=== PATIENT | female | born 1955 | race Caucasian/White ===

== ENCOUNTER 2019-11-20 08:12 | Day surgery (SDC) | payer OTHER ==
[~2019-11-20] VITALS: Ht 177.8 cm; Wt 86.2 kg
[~2019-11-20 08:12] MED LIST: ADULT ASPIRIN R81 MG PO; COZAAR25 MG PO; GLUCOPHAGE500 MG PO; LIPITOR40 MG PO; VITAMIN D3400 UNIT PO
--- NOTE | 2019-11-20 09:58 | NUR ---
11/20/19 0958 Jazmine Trent 0953 PATIENT ARRIVES TO PACU AWAKE BUT DROWSY, ANSWERS QUESTIONS APPROPRIATELY, DENIES PAIN OR NAUSEA, BACK TO SLEEP WHEN NOT STIMULATED. RESP EVEN AND UNLABORED, ARRIVES ON ROOM AIR WITH SATS >92%.
--- NOTE | 2019-11-20 18:36 | OR ---
[facility] [address] [place], [place] [address] Signed DATE OF OPERATION: 11/20/2019 SURGEON: Louisa Crowley MD PREOPERATIVE DIAGNOSIS: History of sigmoid resection for diverticulosis, 2007, colon surveillance. POSTOPERATIVE DIAGNOSES: 1. Diverticulosis of remaining colon. 2. Patent anastomosis. 3. Small polyp on rectal side of coloproctostomy anastomotic site. PROCEDURE: Total colonoscopy to cecum with cold snare polypectomy x1. ANESTHESIA: Intravenous sedation, fentanyl 100 mcg, Versed 7 mg. INDICATION: This 64-year-old white woman is a patient of Dr. Landrum as well as Dr. York. She underwent sigmoid resection by me for diverticular disease in 2007. She is here for surveillance colonoscopy. Her last colonoscopy was in 2009, 10 years ago. She is symptom-free. She has no bleeding, diarrhea, or constipation and no family history of colon cancer. She understands the risks of bleeding, infection, and perforation related to colonoscopy and wished to proceed. FINDINGS: The prep was excellent. Complete colonoscopy was undertaken to the cecum without question. Numerous diverticula were seen in the colon above the anastomosis. She had no evidence of anastomotic stricture. There was a small polyp, probably adenomatous downstream (rectal side) of the anastomosis, which was excised completely with cold snare polypectomy technique. There were no other findings of concern. DESCRIPTION OF PROCEDURE: The patient was brought to the endoscopy suite and placed in lateral decubitus position, given intravenous sedation to the point of slurred speech and nystagmus. Digital rectal examination was normal. An Olympus video colonoscope was passed in the rectum and manipulated throughout the colon noting numerous diverticula throughout. The scope was ultimately advanced to the Electronically Signed By: LOUISA CROWLEY MD 11/20/19 1836 PATIENT NAME: JENNIFER FRANCO OPERATIVE REPORT DATE OF : 59 REPORT #: [id number] PHYSICIAN: LOUISA CROWLEY MD PCP: PABLO LANDRUM MD REPORT IS CONFIDENTIAL AND NOT TO BE RELEASED WITHOUT AUTHORIZATION [facility] [address] [place], [place] [address] Signed cecum. The ileocecal valve appeared normal. Irrigation was undertaken and careful withdrawal of scope from that point showed no sign of abnormality. At the coloproctostomy anastomosis, it was widely patent without sign of problem. There was a small polyp on the rectal side of the anastomosis. This was excised with cold snare polypectomy technique without problem. Retroflexed view of the rectum was normal as well. The scope was removed. The patient was taken to recovery room in good condition. CONCLUDING DIAGNOSES: 1. Diverticulosis, asymptomatic. 2. Small polyp of rectum (excised). PLAN: The path report confirms an adenomatous polyp. I would recommend repeat colonoscopy in 5 years, if not then 10 years. Maintain high-fiber diet. She will return to the ongoing care of Dr. York and Dr. Landrum. MD JOEL Yañez/DONATO /[id number] cc: MD Michelle Briggsn, MD Copies: PABLO LANDRUM MD, PATRICIA J MD ~ Electronically Signed By: LOUISA CROWLEY MD 11/20/19 1836 PATIENT NAME: JENNIFER FRANCO OPERATIVE REPORT DATE OF : 59 REPORT #: [id number] PHYSICIAN: LOUISA CROWLEY MD PCP: PABLO LANDRUM MD REPORT IS CONFIDENTIAL AND NOT TO BE RELEASED WITHOUT AUTHORIZATION
--- NOTE | 2019-11-24 15:17 | PATH ---
[facility] [address] [place], [place] [address] Signed SPECIMEN(S): A RECTAL POLYP SPECIMEN SOURCE: A. RECTAL POLYP CLINICAL HISTORY: Surveillance colonoscopy/polyp x2; diverticulosis MICROSCOPIC DESCRIPTION: Histologic sections of all submitted blocks are examined by light microscopy. These findings, together with the gross examination, support the pathologic diagnosis. FINAL PATHOLOGIC DIAGNOSIS: Rectum, polyp, polypectomy: - Fragments of colorectal mucosa with no histopathologic abnormality. - Negative for dysplasia or malignancy. NAL:caw:C GROSS DESCRIPTION: The specimen, labeled "KN, rectal polyp," is received in formalin and consists of two cox soft tissue fragment(s) that measure 0.5 and 0.7 cm in greatest dimension. The specimen is entirely submitted in cassette (A1). FB (under the direct supervision of a pathologist) The Gross Description was prepared using a voice recognition system. The report was reviewed for accuracy; however, sound-alike word errors, addition and/or deletions may occur. If there is any question about this report, please contact Client Services. PERFORMING LABORATORY: The technical component was performed by [employer], [address] [place] [address] (Electronic Prepress Technician: Betty Adler MD; CLIA# [id number]). [facility], [address] [address] (Electronic Prepress Technician: Adalberto Castro MD; CLIA# [id number]). Diagnostician: Eleonora Lantigua MD Pathologist Electronically Signed 11/24/2019 PATIENT NAME: JENNIFER FRANCO PATHOLOGY DATE OF : 59 REPORT #: [id number] PHYSICIAN: DEISY PATHOLOGY PCP: PABLO COOLEY MD REPORT IS CONFIDENTIAL AND NOT TO BE RELEASED WITHOUT AUTHORIZATION [address] [place] [address] Signed Copies: ~ PATIENT NAME: JENNIFER FRANCO PATHOLOGY DATE OF : 59 REPORT #: [id number] PHYSICIAN: [facility] PCP: PABLO COOLEY MD REPORT IS CONFIDENTIAL AND NOT TO BE RELEASED WITHOUT AUTHORIZATION
== END 2019-11-20 10:15 | disposition home or self-care (01) ==
LOC: OPS 08:12 → DS 08:16 → OPS 09:45 → DS 09:45 → OPS 10:15
PROVIDERS: Surgery
PROC: 0DBP8ZZ Excision of Rectum, Via Natural or Artificial Opening Endoscopic (ICD-10-PCS; principal; 2019-11-20 09:45)
DX: Z12.11 Encounter for screening for malignant neoplasm of colon (principal); K62.1 Rectal polyp; K57.30 Diverticulosis of large intestine without perforation or abscess without bleeding; I10 Essential (primary) hypertension; E11.9 Type 2 diabetes mellitus without complications; Z90.49 Acquired absence of other specified parts of digestive tract; Z98.0 Intestinal bypass and anastomosis status; Z79.899 Other long term (current) drug therapy; Z79.84 Long term (current) use of oral hypoglycemic drugs
CPT/HCPCS: 99153; G0500; J2250; J3010; J7121

== ENCOUNTER 2020-05-04 10:14 | Emergency (ER) | payer OTHER ==
[~2020-05-04] VITALS: Ht 177.8 cm; Wt 86.2 kg
--- OUTSIDE RECORDS SUMMARY | ~2020-05-04 | XMS | Clinical Summary ---
Demographics + + + | Address | [address] | | | [place] [address] | + + + | Home Phone | | + + + | Preferred Language | Unknown | + + + | Marital Status | | + + + | Restorationist Affiliation | 1041 | + + + | Race | Unknown | + + + | Ethnic Group | Unknown | + + + Author + + + | Author | [facility] | | | and Marco Antonioana | + + + | Organization | [facility] | | | and Marco Antonioana | + + + | Address | Unknown | + + + | Phone | Unavailable | + + + Support + + +---------+ + | Name | Relationship | Address | Phone | + + +---------+ + | Leobardo Swartz | ECON | Unknown | | + + +---------+ + Care Team Providers + +------+ + | Care Laborer Prestressed Concrete Name | Role | Phone | + +------+ + PCP | Unavailable | + +------+ + Allergies Not on File Medications Not on file Active Problems Not on file Social History + +-------+ +--------+------+ | Tobacco Use | Types | Packs/Day | Years | Date | | | | | Used | | + +-------+ +--------+------+ | Never Assessed | | | | | + +-------+ +--------+------+ + + + | Sex Assigned at | Date Recorded | | | | + + + | Not on file | | + + + Last Filed Vital Signs Not on file Plan of Treatment + + +-------+ + | Health Maintenance | Due Date | Last | Comments | | | | Done | | + + +-------+ + | Vaccine: | | | | | Dtap/Tdap/Td (1 - | 6 | | | | Tdap) | | | | + + +-------+ + | Cervical Cancer | | | | | Screening (Pap) | 7 | | | + + +-------+ + | Vaccine: Zoster (1 | | | | | of 2) | 7 | | | + + +-------+ + | Breast Cancer | | | | | Screening | 2 | | | + + +-------+ + | Vaccine: Influenza | | | | | (#1) | 0 | | | + + +-------+ + Results Not on filefrom Last 3 Months"
--- OUTSIDE RECORDS SUMMARY | ~2020-05-04 | XMS | Encounter Summary ---
Demographics + + + | Address | [address] | | | [place] [address] | + + + | Home Phone | | + + + | Preferred Language | Unknown | + + + | Marital Status | | + + + | Evangelical Affiliation | 1041 | + + + | Race | Unknown | + + + | Ethnic Group | Unknown | + + + Author + + + | Author | [facility] | | | and Marco Antonioana | + + + | Organization | [facility] | | | and Marco Antonioana [...] Team Providers + +------+ + | Care Field Director Name | Role | Phone | + +------+ + PCP | Unavailable | + +------+ + Encounter Details +--------+ + + + + | Date | Type | Department | Care Team | Description | +--------+ + + + + | 05/09/ | Hospital | [facility] | [place], | | | 2005 - | Encounter | [facility] | Magan Iqbal MD [address] | | | | [place] [address] | [facility] | | | 08/07/ | | [place] | [place] [address] | | | 2005 | | [address] | [phone] | | | | | [phone] | | | +--------+ + + + + Social History + +-------+ +--------+------+ | Tobacco [...] on file | | + + + documented as of this encounter Plan of Treatment Not on filedocumented as of this encounter Visit Diagnoses Not on filedocumented in this encounter"
[2020-05-04] MEDS ORDERED: NORCO 5-325 TA1 EACH PO (10:45)
== END 2020-05-04 11:12 | disposition home or self-care (01) ==
LOC: ED 10:14
DX: S49.002A Unspecified physeal fracture of upper end of humerus, left arm, initial encounter for closed fracture (principal); I10 Essential (primary) hypertension; E11.9 Type 2 diabetes mellitus without complications; Z79.899 Other long term (current) drug therapy; Z79.84 Long term (current) use of oral hypoglycemic drugs; W11.XXXA Fall on and from ladder, initial encounter
CPT/HCPCS: 73060; 99283-25

== ENCOUNTER 2020-05-11 05:50 | Day surgery (SDC) | payer OTHER ==
[~2020-05-11] VITALS: Ht 177.8 cm; Wt 86.2 kg
[~2020-05-11 05:50] MED LIST changes: +NORCO 5-325 TA1 EACH PO
[2020-05-11] MEDS ORDERED: OXYCODONE HCL5 MG PO (08:04)
--- NOTE | 2020-05-12 10:45 | OR ---
[facility] [address] [place], [place] [address] Signed DATE OF OPERATION: 05/11/2020 SURGEON: Gracy Castro MD PREOPERATIVE DIAGNOSIS: Displaced left proximal humerus fracture. POSTOPERATIVE DIAGNOSIS: Displaced left proximal humerus fracture. PROCEDURE PERFORMED: Open reduction and internal fixation of left proximal humerus. MANAGER CASE MANAGEMENT: Mellisa White PA-C. Mellisa was present and critical for all portions of procedure and Ritesh LANZA. ANESTHESIA: General. BLOOD LOSS: 100 mL. IMPLANTS: Synthes short proximal humerus plate with 7 screws. BRIEF HISTORY: Jennifer is a 64-year-old female, who suffered a ground level fall fracturing her proximal humerus. It was 100% displaced anteriorly. Risks and benefits of operative treatment were discussed with her. It was noted that she was thrombocytopenic, which is her normal state. Her platelets were around 96. We did have two 6 packs of platelets available prior to surgery; however, we held off giving them until after ascertaining whether they were needed. She was taken to the operating room. After adequate anesthesia, she was placed in a beach chair position. All downside pressure points were well padded. The shoulder was prepped and draped in a standard sterile fashion. Standard deltopectoral approach was taken through skin and subcutaneous tissue. The deltopectoral interval was identified. The cephalic vein was identified, retracted laterally and protected. The subdeltoid bursa was mobilized. The fracture was readily identifiable. The fracture was distracted and cleaned of all debris and using rotation Electronically Signed By: GRACY CASTRO MD 05/12/20 0728 Electronically Signed By: GRACY CASTRO MD 05/13/20 1138 PATIENT NAME: JENNIFER FRANCO OPERATIVE REPORT DATE OF : 59 REPORT #: [id number] PHYSICIAN: GRACY CASTRO MD PCP: PABLO COOLEY MD REPORT IS CONFIDENTIAL AND NOT TO BE RELEASED WITHOUT AUTHORIZATION [facility] [address] [place], [place] [address] Signed and a shoe horn, the fracture was reduced quite nicely. This was checked using image intensifier and found to be in good position. We then placed the short proximal humerus plate on the lateral aspect of the humerus just posterior to the biceps tendon. The plate was held with a single screw in the center portion. We did place in a low position since there were no tuberosity fractures. This will help to avoid impingement. Once the position was ascertained on the C-arm, the 5 proximal screws were placed under image intensifier guidance. We then placed two more screws distally and checked the position and screw lengths, all were found to be adequate. The reduction was anatomic. The wound was then copiously irrigated with antibiotic solution, closed with 0 Vicryl for the deltopectoral interval, 2-0 Stratafix for the subcutaneous tissue, and zari for the skin. Wound was dressed with a KHLOE wound VAC dressing and she was placed in a sling, taken to the recovery room in satisfactory condition. All sponge, needle, and instrument counts were correct. Gracy Castro MD BA/MODL /[id number] Copies: ~ Electronically Signed By: GRACY CASTRO MD 05/12/20 0728 Electronically Signed By: GRACY CASTRO MD 05/13/20 1138 PATIENT NAME: JENNIFER FRANCO OPERATIVE REPORT DATE OF : 59 REPORT #: [id number] PHYSICIAN: GRACY CASTRO MD PCP: PABLO COOLEY MD REPORT IS CONFIDENTIAL AND NOT TO BE RELEASED WITHOUT AUTHORIZATION
== END 2020-05-11 11:00 | disposition home or self-care (01) ==
LOC: DS 05:50 → OPS 05:50
PROVIDERS: ATTEND Specialist
PROC: 0PSD04Z Reposition Left Humeral Head with Internal Fixation Device, Open Approach (ICD-10-PCS; principal; 2020-05-11 06:45)
DX: S42.202A Unspecified fracture of upper end of left humerus, initial encounter for closed fracture (principal); I10 Essential (primary) hypertension; E11.9 Type 2 diabetes mellitus without complications; Z79.899 Other long term (current) drug therapy; Z79.84 Long term (current) use of oral hypoglycemic drugs; W11.XXXA Fall on and from ladder, initial encounter
CPT/HCPCS: 01740; 64415; 73060; 76942; C1713; J0131; J0330; J0690; J0735; J1100; J1885; J2001; J2250; J2270; J2405; J2704; J2765; J3010; J7121

== ENCOUNTER 2025-07-16 08:16 | Day surgery (SDC) | payer MEDICARE, OTHER ==
[~2025-07-16] VITALS: Ht 177.8 cm; Wt 60.9 kg
--- NOTE | ~2025-07-16 | OR ---
[facility] [address] [place], [place] [address] Draft DATE OF OPERATION: 07/16/2025 SURGEON: Louisa Crowley MD PREOPERATIVE DIAGNOSIS: Progressive weight loss, 70 pounds over four years, now with severe epigastric pain. POSTOPERATIVE DIAGNOSES: 1. Moderately severe antral gastritis and duodenitis without sign of ulceration. 2. Probable bile reflux related gastritis. PROCEDURE: Esophagogastroduodenoscopy with biopsy. ANESTHESIA: Intravenous sedation, fentanyl 100 mcg, and Versed 5 mg. INDICATION: This 70-year-old white woman is a patient of Jasmine Wall PA-C. She was seen by me recently with complaints of persistent progressive epigastric pain, which is relieved only by eating. Perpetual intake of food is the only relief she has. Notably, she has gained no weight from all of the food intake and indeed has lost at least 70 pounds over the past four years. Her usual weight as far back as high school was 170 pounds and now she is 134 pounds. The patient does have diabetes for which she is taking Jardiance as well as metformin as well as Basaglar. She was empirically started on a PPI medication by me a few days ago and notes mild improvement. Given her weight loss and so forth, I am somewhat concerned of malignancy and on that basis, an urgent upper endoscopy is recommended. The risk of bleeding, infection, and perforation was reviewed with her. She understands, wished to proceed. FINDINGS: There was no sign of neoplasm or actual ulceration. She had a fair amount of bile within the stomach upon entry into it. She did have antral gastritis and significant pyloric and second portion of duodenum inflammatory changes as well. CLOtest was negative. The flap valve was reasonably good. The esophagus was entirely normal. CLOtest is negative thus far. DESCRIPTION OF PROCEDURE: The patient was brought to the endoscopy suite, given topical lidocaine hypopharyngeal anesthesia and placed in lateral decubitus position. She was given intravenous sedation PATIENT NAME: JENNIFER FRANCO OPERATIVE REPORT DATE OF : 59 REPORT #: [id number] PHYSICIAN: LOUISA CROWLEY MD PCP: JASMINE WALL PAC REPORT IS CONFIDENTIAL AND NOT TO BE RELEASED WITHOUT AUTHORIZATION [facility] [address] [place], [place] [address] Draft to the point of slurred speech and nystagmus. Full cardiopulmonary monitoring was maintained. A bite block was placed. An Olympus video upper endoscope was passed in the hypopharynx. The vocal cords were normal. The scope was advanced to the esophagus. It was normal. Scope was advanced into the stomach, which showed a fair amount of edema and inflammation and considerable amount of bile. Irrigation was undertaken. Bile was suctioned free. Rugal folds were thickened. The antrum showed inflammatory change, but no sign of ulceration or neoplasm. Pylorus was normal. Scope was passed through into the duodenum. Scope was passed as far as possible, no doubt to the 3rd portion of the duodenum, which was normal. Biopsies were taken there and upon withdrawal of scope, inflammatory changes were noted of the second and bulbar portions of the duodenum. These areas were biopsied independently. Scope was withdrawn and biopsies taken of the antrum and more proximal stomach for both HO and pathologic testing. CLOtest biopsies were obtained as well. Retroflexed view showed a normal flap valve. Withdrawal of scope to the distal esophagus showed normal esophageal mucosa, which was biopsied. Careful withdrawal showed no other findings of note. The scope was removed. The patient was taken to recovery room. CONCLUDING DIAGNOSIS: Moderately severe antral gastritis and duodenitis. We will initiate PPI on a b.i.d. basis and prescribe Carafate 1 g p.o. q.i.d. We will additionally check abdominal CT scan. She will call the office in the coming week and we will organize that. I will see her back in the office thereafter. MD JOEL Yañez/DONATO /[id number] cc: Jasmine Wall PA-C Copies: PATIENT NAME: JENNIFER FRANCO OPERATIVE REPORT DATE OF : 59 REPORT #: [id number] PHYSICIAN: LOUISA CROWLEY MD PCP: JASMINE WALL PAC REPORT IS CONFIDENTIAL AND NOT TO BE RELEASED WITHOUT AUTHORIZATION [facility] [address] [facility] [place] [address] Draft ~ PATIENT NAME: JENNIFER FRANCO OPERATIVE REPORT DATE OF : 59 REPORT #: [id number] PHYSICIAN: LOUISA CROWLEY MD PCP: JASMINE WALL PAC REPORT IS CONFIDENTIAL AND NOT TO BE RELEASED WITHOUT AUTHORIZATION
[~2025-07-16 08:16] MED LIST changes: +IBLOOD GLUCOSE TEST STRIP 1 EA TEST VI PRN; +LACTATED RINGER'S 1,000 ML IV SCH; +LIDOCAINE HCL 1% 5 ML SDV INJ ONE; +LIDOCAINE HCL 4% 50 ML BTL TOP SCH; +MIDAZOLAM HCL 5 MG/5 ML VIAL IV PRN; +OXYCODONE HCL5 MG PO; +fentaNYL citrate 100 MCG/2 ML VIAL IV PRN
[2025-07-16] MEDS ORDERED: JARDIANCE25 MG PO (08:39)
[2025-07-16] MEDS ORDERED: BASAGLAR K100 UNIT/1 SUB-Q (08:39)
[2025-07-16 08:41] VITALS: BP 133/73
[2025-07-16] MEDS ORDERED: fentaNYL citrate 100 MCG/2 ML VIAL ONE (09:45)
[2025-07-16] MEDS ORDERED: MIDAZOLAM HCL 5 MG/5 ML VIAL ONE (09:45)
--- NOTE | 2025-07-16 10:37 | NUR ---
07/16/25 Christos Syed 1025: PT ARRIVED TO PACU VIA STRETCHER. PT ALERT AND TALKING ON ARRIVAL. PT ON 3L NC AT THIS TIME. PT DENIES NAUSEA OR PAIN. 1028: PT TITRATED TO RA AT THIS TIME.
[2025-07-16 11:00] VITALS: BP 120/79
--- NOTE | 2025-07-20 10:03 | PATH ---
[facility] [address] [place], [place] [address] Signed SPECIMEN(S): A DUODENAL BIOPSY SPECIMEN(S): B DUODENAL BIOPSY SPECIMEN(S): C ANTRUM BIOPSY SPECIMEN(S): D PROXIMAL STOMACH BIOPSY SPECIMEN(S): E DISTAL ESOPHAGEAL BIOPSY SPECIMEN SOURCE: A. DUODENAL BIOPSY B. DUODENAL BIOPSY C. ANTRUM BIOPSY D. PROXIMAL STOMACH BIOPSY E. DISTAL ESOPHAGEAL BIOPSY CLINICAL HISTORY: Weight loss, chronic epigastric pain/severe gastritis, duodenitis FINAL PATHOLOGIC DIAGNOSIS: A. Duodenal biopsy: - Benign small bowel mucosa consistent with duodenum - Negative for specific features of celiac sprue B. Duodenal bulb biopsy: - Benign small bowel mucosa consistent with duodenum - Negative for specific features of celiac sprue C. Antrum biopsy: - Benign gastric mucosa with features of reactive gastropathy - Negative for active acute inflammation, intestinal metaplasia, dysplasia, or Helicobacter organisms by routine HE stain D. Proximal stomach biopsy: - Benign gastric mucosa with features of reactive gastropathy - Negative for active acute inflammation, intestinal metaplasia, dysplasia, or Helicobacter organisms by routine HE stain E. Distal esophageal biopsy: - Benign squamous mucosa - Negative for glandular mucosa, intestinal metaplasia, dysplasia, or eosinophilia BB MICROSCOPIC EXAMINATION: Histologic sections of all submitted blocks are examined by light microscopy. These findings, together with the gross examination, support the pathologic diagnosis. PATIENT NAME: JENNIFER FRANCO PATHOLOGY DATE OF : 59 REPORT #: [id number] PHYSICIAN: DEISY PATHOLOGY PCP: JASMINE MURRAY PAC REPORT IS CONFIDENTIAL AND NOT TO BE RELEASED WITHOUT AUTHORIZATION [facility] [address] [place], [place] [address] Signed GROSS DESCRIPTION: A. The specimen, labeled and designated "Nooy, duodenal biopsy," is received in formalin and consists of three cox soft tissue fragments, ranging from 0.1-0.4 cm. Entirely submitted in (A1). B. The specimen, labeled and designated "Nooy, duodenal bulb biopsy," is received in formalin and consists of two cox soft tissue fragments, ranging from 0.3-0.4 cm. Entirely submitted in (B1). C. The specimen, labeled and designated "Nooy, antrum biopsy," is received in formalin and consists of one cox soft tissue fragment, 0.4 cm. Entirely submitted in (C1). D. The specimen, labeled and designated "Nooy, proximal stomach biopsy," is received in formalin and consists of two cox soft tissue fragments, ranging from 0.6-0.7 cm. Entirely submitted in (D1). E. The specimen, labeled and designated "Nooy, distal esophageal biopsy," is received in formalin and consists of three cox soft tissue fragments, ranging from 0.1-0.6 cm. Entirely submitted in (E1). VB (under the direct supervision of a pathologist) The Gross Description was prepared using a voice recognition system. The report was reviewed for accuracy; however, sound-alike word errors, addition and/or deletions may occur. If there is any question about this report, please contact Client Services. ADDITIONAL NOTES: Immunohistochemical and/or in situ hybridization studies if performed in this case included appropriate positive controls that reacted as expected. This test was developed and its performance characteristics determined by [facility]. It has not been cleared or approved by the U.S. Food and Drug Administration. The FDA has determined that such clearance or approval is not necessary. This test is used for clinical purposes. It should not be regarded as investigational or for research. [facility] is certified under the Clinical Laboratory Improvement Amendments of 1988 (CLIA) as qualified to perform high complexity clinical laboratory testing. PERFORMING LABORATORY: Technical component was performed by [facility], [address] [place] [address], [place] [address] (CLIA# [id number]). [facility] - [address] [place] [id number] (CLIA#: [id number]). PATIENT NAME: JENNIFER FRANCO PATHOLOGY DATE OF : 59 REPORT #: [id number] PHYSICIAN: DEISY ARMAS PCP: JASMINE MURRAY PAC REPORT IS CONFIDENTIAL AND NOT TO BE RELEASED WITHOUT AUTHORIZATION [facility] [address] [place], [place] [address] Signed Diagnostician: Ramez Quevedo MD Pathologist Electronically Signed 07/20/2025 Copies: ~ PATIENT NAME: JENNIFER FRANCO PATHOLOGY DATE OF : 59 REPORT #: [id number] PHYSICIAN: DEISY ARMAS PCP: JASMINE MURRAY PAC REPORT IS CONFIDENTIAL AND NOT TO BE RELEASED WITHOUT AUTHORIZATION
== END 2025-07-16 11:08 | disposition home or self-care (01) ==
LOC: DS 08:16
PROVIDERS: ATTEND Surgery
PROC: 0DB68ZX Excision of Stomach, Via Natural or Artificial Opening Endoscopic, Diagnostic (ICD-10-PCS; 2025-07-16)
PROC: 0DB58ZX Excision of Esophagus, Via Natural or Artificial Opening Endoscopic, Diagnostic (ICD-10-PCS; 2025-07-16)
PROC: 0DB98ZX Excision of Duodenum, Via Natural or Artificial Opening Endoscopic, Diagnostic (ICD-10-PCS; principal; 2025-07-16 09:30)
DX: K31.89 Other diseases of stomach and duodenum (principal); K29.50 Unspecified chronic gastritis without bleeding; K29.80 Duodenitis without bleeding; E11.9 Type 2 diabetes mellitus without complications; I10 Essential (primary) hypertension; Z88.0 Allergy status to penicillin; Z79.84 Long term (current) use of oral hypoglycemic drugs
CPT/HCPCS: 99153; G0500; J2250; J3010; J7121

== ENCOUNTER 2025-07-30 08:53 | Day surgery (SDC) | payer MEDICARE, OTHER ==
[~2025-07-30] VITALS: Ht 177.8 cm; Wt 59.0 kg
[~2025-07-30 08:53] MED LIST changes: +BASAGLAR K100 UNIT/1 SUB-Q; +CEFAZOLIN SODIUM 2 GM in SODIUM CHLORIDE 0.9% 100 ML IV SCH; +HEParin SOD (PORCINE) 5,000 UNIT/ML SDV SUB-Q SCH; +HYDROMORPHONE HC2 MG PO; +JARDIANCE25 MG PO; -LIDOCAINE HCL 4% 50 ML BTL TOP SCH; -MIDAZOLAM HCL 5 MG/5 ML VIAL IV PRN; +SEVOFLURANE 250 ML BTL INH ONE; -fentaNYL citrate 100 MCG/2 ML VIAL IV PRN
[2025-07-30 09:07] VITALS: BP 148/73
--- NOTE | 2025-07-30 09:28 | NUR ---
FAMILY WITH PT. WARMING AIR ON PER REQUEST.
--- NOTE | 2025-07-30 10:03 | NUR ---
DOUBLE CHECKED WITH DR CROWLEY TO HOLD HEPARIN
[2025-07-30] MEDS ORDERED: SUGAMMADEX SODIUM 200 MG/2 ML ML ONE (10:10)
[2025-07-30] MEDS ORDERED: ROCURONIUM BROMIDE 50 MG/5 ML SYR ONE ×2 (10:10→11:53)
[2025-07-30] MEDS ORDERED: fentaNYL citrate 100 MCG/2 ML VIAL ONE ×2 (10:10→12:06)
[2025-07-30] MEDS ORDERED: ACETAMINOPHEN 1,000 MG/100 ML VIAL ONE (10:10)
[2025-07-30] MEDS ORDERED: LIDOCAINE HCL 2% 5 ML SDV ONE (10:10)
[2025-07-30] MEDS ORDERED: DEXAMETHASONE SOD PHOS 4 MG/ML VIAL ONE (10:10)
[2025-07-30] MEDS ORDERED: LIDOCAINE HCL 2% 20 MG/ML VIAL INJ ONE (10:11)
[2025-07-30] MEDS ORDERED: LACTATED RINGER'S 1,000 ML IV ONE (11:27)
[2025-07-30] MEDS ORDERED: PROCHLORPERAZINE EDISYLATE 10 MG/2 ML VIAL IV PRN (12:45)
[2025-07-30] MEDS ORDERED: NALOXONE HCL 0.4 MG SYR IV PRN ×2 (12:45→13:45)
[2025-07-30] MEDS ORDERED: HYDROmorphone HCL 1 MG/ML SYR IV PRN (12:45)
[2025-07-30] MEDS ORDERED: fentaNYL citrate 50 MCG/ML SDV IV PRN (12:45)
[2025-07-30] MEDS ORDERED: IBLOOD GLUCOSE TEST STRIP 1 EA TEST VI PRN (12:45)
--- NOTE | 2025-07-30 13:30 | NUR ---
07/30/25 1330 Neema Keller PATIENT HAS AN ORAL AIRWAY IN PLACE. MARKO BOO HOLDING JAW THRUST FOR ADEQUATE EXCHANGE.
[2025-07-30] MEDS ORDERED: ACETAMINOPHEN 500 MG TAB PO PRN (13:45)
[2025-07-30] MEDS ORDERED: IBUPROFEN 600 MG TAB PO PRN (13:45)
[2025-07-30] MEDS ORDERED: LACTATED RINGER'S 1,000 ML IV SCH (13:45)
[2025-07-30] MEDS ORDERED: IBUPROFEN600 MG PO (13:53)
[2025-07-30] MEDS ORDERED: ACETAMINOPHEN500 MG PO (13:53)
[2025-07-30] MEDS ORDERED: HYDROMORPHONE HC4 MG PO (13:53)
--- NOTE | 2025-07-30 14:13 | NUR ---
1403- PT REPORT RECIEVED FROM CERAMICS TECHNICIAN. VITALS, PAIN, SURGICAL SITES, N/V NOTED. 1415- PT STATED SHE IS FEELING NAUSEA BUT NO PAIN. RN TO NOTIFY DR FOR MEDICATION.
[2025-07-30 14:45] VITALS: BP 129/80
[2025-07-30 15:08] VITALS: BP 132/71
--- NOTE | 2025-07-30 15:20 | NUR ---
PT RESTING IN BED AND REPORT 5/10 PAIN. PAIN MEDICATION GIVEN, PT EATING APPLESAUCE AND DENIES CONCERNS, NAUSEA IS "BETTER." FAMILY AT BEDSIDE. PLAN OF CARE DISCUSSED AND VSS. PT ENCOURAGED TO CALL WHEN SHE NEEDS TO VOID.
--- NOTE | 2025-07-30 15:23 | NUR ---
RN AT BEDSIDE AND DC INSTRUCTIONS GIVEN AND ALL QUESTIONS ANSWERED. PT AND FAMILY VERBALIZED UNDERSTANDING.
[2025-07-30 16:05] VITALS: BP 130/73
--- NOTE | 2025-07-30 16:10 | NUR ---
1610- PT VITALS, PAIN, /NV, AND SITES NOTED. PT IV SAILINE LOCKED. PT UP TO TRY TO VOID.
--- NOTE | 2025-07-30 16:25 | NUR ---
1615-PT ABLE TO VOID APPROX 500 ML OF YELLOW, URINE. PT ASSISTED BACK TO ROOM WITH RN JENNIFER. FAMILY AT BEDSIDE. PERSONAL BELONGINGS AND CALL LIGHT WITHIN REACH. FAMILY ASSISTING PT IN DRSG. 1625-IV REMOVED. TIP APPEARS INTACT. PRESSURE DRSG APPLIED.
--- NOTE | 2025-07-30 16:35 | NUR ---
PT DISCHARGED FROM DS VIA WC TO PASSENGER SIDE OF SPOUSE VEHICLE.
--- NOTE | 2025-08-02 18:20 | OR ---
[facility] [address], [place] [address] Signed DATE OF OPERATION: 07/30/2025 SURGEON: Louisa Crowley MD PREOPERATIVE DIAGNOSES: 1. Midbody pancreatic neoplasm with incorporation of surrounding major vascular structures. 2. Elevated CA 19-9. POSTOPERATIVE DIAGNOSES: 1. Extensive intraabdominal omental adhesions. 2. Dense midbody pancreatic neoplasm consistent with adenocarcinoma; no evidence of carcinomatosis. PROCEDURES: 1. Laparoscopy with extensive lysis of adhesions. 2. Laparoscopic core biopsy of the midportion of pancreatic mass. ANESTHESIA: General endotracheal, Flynn Barcenas CRNA and local 10 mL of 0.25% Marcaine with epinephrine. INDICATION: This 70-year-old white woman is a patient of Jasmine Wall PA-C. She is referred to me for severe epigastric pain and has had weight loss of over 70 pounds over the past two years or so. At presentation, the patient was perpetually painful in the epigastric area and was actually eating. She underwent upper endoscopy by me on July 16, 2025, which showed significant gastritis of the stomach and duodenitis, but no sign of ulcer or other finding. PPI medication b.i.d. and Carafate 4 times a day did not have much impact on her pain initially. She did undergo CT scan under my direction on July 23, 2025, which unfortunately demonstrated a large mid body pancreatic neoplasm 6.1 cm in length. Major vascular structures were totally encased. She had no evidence of carcinomatosis or ascites and the liver appeared free of metastatic disease. A CA 19-9 tumor marker was obtained, which was markedly elevated. I have recommended a biopsy of the pancreas to ascertain this does represent adenocarcinoma of the pancreas (most likely) and to assure there is no evidence of lymphoma, which would markedly change not only her treatment, but her prognosis. The risk of the procedures were reviewed with her and her and they include, but are not limited to bleeding, infection, failure of diagnosis, missed diagnosis, and need for Electronically Signed By: LOUISA CROWLEY MD 08/02/25 1820 PATIENT NAME: JENNIFER FRANCO OPERATIVE REPORT DATE OF : 59 REPORT #: [id number] PHYSICIAN: LOUISA CROWLEY MD PCP: JASMINE WALL PAC REPORT IS CONFIDENTIAL AND NOT TO BE RELEASED WITHOUT AUTHORIZATION [facility] [address], [place] [address] Signed other indicated procedures. Understanding this, they wished to proceed. FINDINGS: The patient is a subcostal incision and midline incision below and above the umbilicus. Open Savanna cannula entry to the abdomen showed extreme intraabdominal omental adhesions to the abdominal wall. A considerable amount of time was required to take down the omental adhesions to allow for anatomic identification. There was no evidence of carcinomatosis or hepatic metastases. Entry to the lesser sac for access to the pancreas did not show abnormality and ultimately, it was found the best approach for biopsy was cephalad to the lesser curve of the stomach where a dense white mass was noted. Biopsies were taken with a core biopsy technique. The operation was somewhat prolonged, complicated, and difficult related to extensive intraabdominal adhesions, but was accomplished safely. DESCRIPTION OF PROCEDURE: The patient was brought to the operating room, given a general endotracheal anesthetic. Preoperative antibiotic Ancef was given and heparin was discontinued due to a platelet count of 125,000, but sequential compression device stockings were used. After satisfactory general endotracheal anesthesia, the abdomen was prepared with a chlorhexidine solution and draped sterilely. Under relaxation, abdominal palpation did not reveal a mass and there was certainly no ascites. An infraumbilical incision was made in the previous midline incision, which extended below and above the umbilicus. The right subcostal incision was noted as well. Entry to the abdomen was undertaken showing no sign of ascites. Pneumoperitoneum was achieved at level 14 mmHg with carbon dioxide gas. Entry with the camera was challenging as there were omental adhesions extensively noted through the midline and elsewhere. Ultimately, a window was created, which allowed for placement of a right upper quadrant 5 mm trocar and lysis of midline adhesions of omentum to the falciform ligament and so forth were taken down with blunt electrocautery dissection. This allowed for opening of the upper abdomen. A left upper quadrant 5 mm port was placed and two hand manipulation allowed for takedown even more adhesions in relation to the falciform ligament. An inspection showed no sign of carcinomatosis or ascites. The left lateral segment of liver obscured the anterior aspect of the stomach. An additional 10 mm port was placed to the right side of the abdomen to allow for further dissection of omental adhesions ultimately clearing the way for directed activity to the upper abdomen. The greater curve of the stomach was gently elevated and secured in place temporarily Electronically Signed By: LOUISA CROWLEY MD 08/02/25 1820 PATIENT NAME: JENNIFER FRANCO OPERATIVE REPORT DATE OF : 59 REPORT #: [id number] PHYSICIAN: LOUISA CROWLEY MD PCP: JASMINE WALL PAC REPORT IS CONFIDENTIAL AND NOT TO BE RELEASED WITHOUT AUTHORIZATION [address] [address] Signed and a window created between the omentum and the greater curve of the stomach. This allowed for blunt dissection into the retrogastric (lesser sac) space. Meticulous care was made and doing a blunt dissection and ultimately identified the middle colic artery. Where the pancreas would generally be located, there was nothing too obvious actually. On that basis, further dissection was taken laterally in the retrogastric space again showing no clear evidence of neoplasm of the pancreas. The location of pancreas was certain, but the neoplasm itself was not. On that basis, the stomach was released and examination in the area of the gastrohepatic omentum undertaken. Quite notably, the thin peritoneal fold covered a dense white burnette mass, which was quite obviously the neoplasm in question. Under direct visualization, a core needle biopsy device was passed through the anterior abdominal wall allowing for three core biopsies of the neoplasm. There was no untoward bleeding and good core specimens were obtained. Irrigation was undertaken after hemostasis was assured. Given the extensive omental dissection, a number of clips were applied to omental adhesion areas that still had some oozing. Excess irrigation fluid was suctioned free. The infraumbilical fascial incision was reapproximated with interrupted 0 Vicryl suture. The right-sided 10 mm port was secured with a Lio-Iveth 0 Vicryl technique and all skin trocar sites were secured with interrupted 3-0 Vicryl. Additionally, several 2-0 Prolene sutures were used in the infraumbilical fascial layer as there appeared to be remnants of mesh in the area. The skin was then closed with interrupted 3-0 Vicryl. Steri-Strips were applied. She was ultimately extubated and transferred to the recovery room in good condition having suffered no complication. Sponge, needle, and instrument counts were reported as correct x3. The operation was prolonged, complicated, and difficult related to adhesiolysis, but was accomplished safely allowing for less morbidity from an open operation or other interventions. MD JOEL Yañez/MODL /[id number] cc: CLAUDIA Scherer MD Electronically Signed By: LOUISA CROWLEY MD 08/02/25 1820 PATIENT NAME: JENNIFER FRANCO OPERATIVE REPORT DATE OF : 59 REPORT #: [id number] PHYSICIAN: LOUISA CROWLEY MD PCP: JASMINE WALL PAC REPORT IS CONFIDENTIAL AND NOT TO BE RELEASED WITHOUT AUTHORIZATION [facility] [address] [place] [id number] Signed Copies: KAI CASPER MD ~ Electronically Signed By: LOUISA CROWLEY MD 08/02/25 182 PATIENT NAME: JENNIFER FRANCO OPERATIVE REPORT DATE OF : 59 REPORT #: [id number] PHYSICIAN: LOUISA CROWLEY MD PCP: JASMINE WALL PAC REPORT IS CONFIDENTIAL AND NOT TO BE RELEASED WITHOUT AUTHORIZATION
--- NOTE | 2025-08-03 09:02 | PATH ---
[facility] [address] [place], [place] [address] Signed SPECIMEN(S): A PANCREATIC MASS SPECIMEN SOURCE: A. PANCREATIC MASS CLINICAL HISTORY: Pancreatic mass FINAL PATHOLOGIC DIAGNOSIS: Pancreatic mass, biopsy: - Adenocarcinoma, see comment COMMENT: Sections demonstrate multiple core biopsy of fibrotic tissue showing areas with malignant glandular tumor. Immunohistochemical stain for CD19�9 and CK7 are positive in tumor cells consistent with pancreatic primary. 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 NA MICROSCOPIC EXAMINATION: Histologic sections of all submitted blocks are examined by light microscopy. These findings, together with the gross examination, support the pathologic diagnosis. GROSS DESCRIPTION: The specimen, labeled and designated "Maxime, pancreatic mass," is received in formalin and consists of 3 cores of white-cox soft tissue measuring up to 1.2 cm in length and up to 0.1 cm in diameter. The specimens are inked with eosin and submitted entirely in cassettes (A1-A2). AB (under the direct supervision of a pathologist) The Gross Description was prepared using a voice recognition system. The report was reviewed for accuracy; however, sound-alike word errors, addition and/or deletions may occur. If there is any question about this report, please contact Client Services. ADDITIONAL NOTES: Immunohistochemical and/or in situ hybridization studies if performed in this case included appropriate positive controls that reacted as expected. This test was developed and its performance PATIENT NAME: JENNIFER FRANCO PATHOLOGY DATE OF : 59 REPORT #: [id number] PHYSICIAN: [facility] PCP: JASMINE MURRAY PAC REPORT IS CONFIDENTIAL AND NOT TO BE RELEASED WITHOUT AUTHORIZATION [facility] [address] [place], [place] [address] Signed characteristics determined by [facility]. It has not been cleared or approved by the U.S. Food and Drug Administration. The FDA has determined that such clearance or approval is not necessary. This test is used for clinical purposes. It should not be regarded as investigational or for research. [facility] is certified under the Clinical Laboratory Improvement Amendments of 1988 (CLIA) as qualified to perform high complexity clinical laboratory testing. PERFORMING LABORATORY: Technical component was performed by [facility], [address] [place] [address] (CLIA# [id number]). Professional interpretation was performed by [facility], [address] [place] [address] (CLIA#: [id number]). Diagnostician: Michael Berry MD Pathologist Electronically Signed 08/03/2025 Copies: ~ PATIENT NAME: JENNIFER FRANCO PATHOLOGY DATE OF : 59 REPORT #: [id number] PHYSICIAN: [facility] PATHOLOG[facility] PCP: JASMINE MURRAY PAC REPORT IS CONFIDENTIAL AND NOT TO BE RELEASED WITHOUT AUTHORIZATION
== END 2025-07-30 16:35 | disposition home or self-care (01) ==
LOC: DS 08:53
PROVIDERS: ATTEND Surgery
PROC: 0DNU4ZZ Release Omentum, Percutaneous Endoscopic Approach (ICD-10-PCS; 2025-07-30)
PROC: 0FBG4ZX Excision of Pancreas, Percutaneous Endoscopic Approach, Diagnostic (ICD-10-PCS; principal; 2025-07-30 10:00)
DX: C25.1 Malignant neoplasm of body of pancreas (principal); Z88.0 Allergy status to penicillin
CPT/HCPCS: 00840; 88307; 88341; 88342; J0131; J0688; J1100; J2003; J2405; J2704; J3010; J3490; J7121